=== PATIENT | female | born 1995 | race African-American/Black ===

== ENCOUNTER 2018-12-12 20:13 | Emergency (ER) | payer BC ==
[2018-12-12 22:33] LABS: ABSOLUTE EOSINOPHILS # (AUTO) 0.1 10^3/uL (0.0-0.6); ABSOLUTE LYMPHOCYTES (AUTO) 1.7 10^3/uL (0.5-4.7); ABSOLUTE MONOCYTES (AUTO) 0.8 10^3/uL (0.1-1.4); ABSOLUTE NEUT (AUTO) 9.1 10^3/uL (1.7-8.2); BASOPHILS % (AUTO) 0.2 % (0-2); EOSINOPHILS % (AUTO) 0.7 % (0-6); HEMATOCRIT 35.4 % (36.0-47.0); HEMOGLOBIN 12.1 g/dL (12.0-15.5); LYMPHOCYTES % (AUTO) 14.4 % (13-45); MEAN CORPUSCULAR HGB CONC 34.3 g/dL (32.0-36.0); MEAN CORPUSCULAR VOLUME 85 fl (80-97); MONOCYTES % (AUTO) 7.1 % (3-13); PLATELET COUNT 222 10^3/uL (150-450); RED BLOOD COUNT 4.19 10^6/uL (3.72-5.28); RED CELL DISTRIBUTION WIDTH 14.8 % (11.5-14.0); SEGMENTED NEUTROPHILS % (AUTO) 77.6 % (42-78); TOTAL CELLS COUNTED % (AUTO) 100 %; WHITE BLOOD COUNT 11.7 10^3/uL (4.0-10.5)
[2018-12-12 22:38] LABS: APPEARANCE,URINE SLIGHTLY-CLOUDY; BILIRUBIN,URINE NEGATIVE (NEGATIVE); COLOR,URINE YELLOW; GLUCOSE, URINE NEGATIVE (NEGATIVE); KETONES,URINE NEGATIVE (NEGATIVE); LEUKOCYTE ESTERASE,URINE NEGATIVE (NEGATIVE); NITRITE,URINE NEGATIVE (NEGATIVE); PROTEIN,URINE NEGATIVE (NEGATIVE); URINE SPECIFIC GRAVITY 1.015; UROBILINOGEN,URINE NEGATIVE mg/dL (<2.0)
--- NOTE | 2018-12-12 23:30 | ER Document Report ---
ED Medical Screen (RME) - General Chief Complaint: Vag Bleeding, +preg <12wks Stated Complaint: VAGINAL BLEEDING Time Seen by Provider: 12/12/18 23:26 Notes: 23-year-old G1, P0 10 week 6-day female presents to the emergency department for vaginal bleeding during . She said that she had an episode where she bled like a. And she passed a blood clot approximately the size of a quarter at 7:40 PM tonight. She complains of mild cramping in her left lower quadrant. She denies nausea or vomiting. EXAM: CARDIAC: RRR, S1S2 heard, no murmurs; RESP: BBS lungs CTAB I have greeted and performed a rapid initial assessment of this patient. A comprehensive ED assessment and evaluation of the patient, analysis of test results and completion of medical decision making process will be conducted by an additional ED providers. TRAVEL OUTSIDE OF THE [place] IN LAST 30 DAYS: No - Related Data Allergies/Adverse Reactions: No Known Allergies Allergy (Verified 05/24/15 15:48) Past Medical History - Social History Chew tobacco use (# tins/day): No Frequency of alcohol use: None Drug Abuse: None Renal/ Medical History: Denies: Hx Peritoneal Dialysis - Immunizations Immunizations up to date: Yes Physical Exam - Vital signs Vitals: Temp Pulse Resp BP Pulse Ox 98.2 F 77 18 129/62 H 100 12/12/18 21:16 12/12/18 21:16 12/12/18 21:16 12/12/18 21:16 12/12/18 21:16 Course - Vital Signs Vital signs: Temp Pulse Resp BP Pulse Ox 98.2 F 77 18 129/62 H 100 12/12/18 21:16 12/12/18 21:16 12/12/18 21:16 12/12/18 21:16 12/12/18 21:16 - Laboratory Result Diagrams: 12/12/18 22:13 Laboratory results interpreted by me: 12/12/18 12/12/18 20:20 22:13 WBC 11.7 H Hct 35.4 L RDW 14.8 H Absolute Neutrophils 9.1 H Urine Blood LARGE H
--- NOTE | 2018-12-13 00:57 | RADIOLOGY REPORT (SQ) ---
EXAM DESCRIPTION: US LESS THAN 14 WEEKS COMPLETED DATE/TME: 12/12/2018 23:27 CLINICAL HISTORY: 23 years, Female, Vaginal bleeding COMPARISON: None. TECHNIQUE: Transverse and longitudinal transabdominal sonographic images of the pelvis in a first trimester patient LIMITATIONS: None. FINDINGS: The uterus measures 11.1 x 8.0 x 8.1 cm. There is an intrauterine gestational sac with pole. Current ultrasound age is 11 weeks 0 days. heart tones obtained at 160 bpm. The maternal right ovary measures 4 x 3 x 2 cm, the left 3 x 3 x 2 cm. No adnexal solid mass. There is a 1.4 x 1.8 cm cyst of the right ovary which likely reflects a corpus luteal cyst. Arterial and venous flow to both ovaries. No free fluid IMPRESSION: Single live intrauterine gestation with current ultrasound age 11 weeks 0 days. Probable corpus luteal cyst of the right ovary. Nonemergent follow-up recommended copyright 2010 [employer]- All Rights Reserved
--- NOTE | 2018-12-13 02:54 | ER Document Report ---
ED General - General Chief Complaint: Vag Bleeding, +preg <12wks Stated Complaint: VAGINAL BLEEDING Time Seen by Provider: 12/12/18 23:26 Notes: 23-year-old G1, P0 10 week 6-day female presents to the emergency department for vaginal bleeding during . She said that she had an episode where she bled like her period. She passed a blood clot approximately the size of a quarter at 7:40 PM tonight. She complains of mild cramping in her left lower quadrant. She denies nausea or vomiting. Denies fevers or chills, denies trauma. TRAVEL OUTSIDE OF THE [place] IN LAST 30 DAYS: No - Related Data Allergies/Adverse Reactions: No Known Allergies Allergy (Verified 05/24/15 15:48) Past Medical History - Social History Smoking Status: Never Smoker Chew tobacco use (# tins/day): No Frequency of alcohol use: None Drug Abuse: None Family History: Reviewed & Not Pertinent Patient has suicidal ideation: No Patient has homicidal ideation: No Renal/ Medical History: Denies: Hx Peritoneal Dialysis - Immunizations Immunizations up to date: Yes Review of Systems - Review of Systems Constitutional: See HPI EENT: No symptoms reported Cardiovascular: See HPI Respiratory: See HPI Gastrointestinal: See HPI Genitourinary: See HPI Female Genitourinary: See HPI Musculoskeletal: No symptoms reported Skin: No symptoms reported Hematologic/Lymphatic: No symptoms reported Neurological/Psychological: No symptoms reported Physical Exam - Vital signs Vitals: Temp Pulse Resp BP Pulse Ox 98.2 F 77 18 129/62 H 100 12/12/18 21:16 12/12/18 21:16 12/12/18 21:16 12/12/18 21:16 12/12/18 21:16 - Notes Notes: PHYSICAL EXAMINATION: Reviewed vital signs and charting by RN GENERAL: Well-appearing, well-nourished and in no acute distress. HEAD: Atraumatic, normocephalic. No scalp deformity, depression, or crepitance. LUNGS: Breath sounds present, equal, and clear to auscultation bilaterally. No wheezes, rales, or rhonchi. HEART: Regular rate and rhythm without murmurs, rubs, or gallops. 2+ peripheral pulses. Normal capillary refill. ABDOMEN: Soft, mild left lower quadrant tenderness to palpation, nondistended. Normoactive bowel sounds. No guarding, no rebound. No masses appreciated. BACK: Normal contour, no midline tenderness. Rectal exam deferred. PELVC: Deferred. EXTREMITIES: Normal range of motion, no pitting or edema. No cyanosis. PSYCH: Normal mood, normal affect. No suicidal thoughts/ideations. No homocidal thoughts/ideations. No hallucinations. SKIN: Warm, dry, normal turgor, no rashes or lesions noted. Course - Re-evaluation Re-evalutation: 12/13/18 02:56 Well-appearing. Patient states she is still bleeding but is not heavy. She has not soaked through one pad. Ultrasound shows a live intrauterine . She is being followed by [facility]. I have instructed her to follow-up with them in the morning strict return precautions given. Stable for discharge. - Vital Signs Vital signs: Temp Pulse Resp BP Pulse Ox 98.2 F 77 18 129/62 H 100 12/12/18 21:16 12/12/18 21:16 12/12/18 21:16 12/12/18 21:16 12/12/18 21:16 - Laboratory Result Diagrams: 12/12/18 22:13 Laboratory results interpreted by me: 12/12/18 12/12/18 12/12/18 20:20 22:13 22:13 WBC 11.7 H Hct 35.4 L RDW 14.8 H Absolute Neutrophils 9.1 H Beta HCG, Quant 051878.00 H Urine Blood LARGE H Discharge - Discharge Clinical Impression: Vaginal bleeding during Condition: Good Disposition: HOME, SELF-CARE Additional Instructions: Your ultrasound today shows a living intrauterine . Please follow closely with your primary care PT SITTER. Please return if you develop severe abdominal pain, bleeding that goes through more than 2 pads for more than 2 hours, pass out, or have any other symptoms that are concerning to you. Please follow-up closely with your OBGYN regarding todays visit.
[2018-12-13 02:55] VITALS: BP 113/71
== END 2018-12-13 03:11 | disposition home or self-care (01) ==
LOC: ER 20:13
DX: O20.9 Hemorrhage in early pregnancy, unspecified (principal); O26.891 Other specified pregnancy related conditions, first trimester; R10.32 Left lower quadrant pain; R10.814 Left lower quadrant abdominal tenderness; Z3A.10 10 weeks gestation of pregnancy
CPT/HCPCS: 36415; 76801; 81001; 84702; 85025; 86900; 86901; 99284

== ENCOUNTER 2019-07-01 07:38 | Inpatient (IN) | payer BC, MEDICAID ==
[2019-07-01 08:13] LABS: APPEARANCE,URINE SLIGHTLY-CLOUDY; BILIRUBIN,URINE NEGATIVE (NEGATIVE); COLOR,URINE YELLOW; GLUCOSE, URINE NEGATIVE (NEGATIVE); KETONES,URINE NEGATIVE (NEGATIVE); LEUKOCYTE ESTERASE,URINE NEGATIVE (NEGATIVE); NITRITE,URINE NEGATIVE (NEGATIVE); PROTEIN,URINE 30 mg/dL (NEGATIVE); URINE SPECIFIC GRAVITY 1.011; UROBILINOGEN,URINE NEGATIVE mg/dL (<2.0)
[2019-07-01 08:35] LABS: URINE AMPHETAMINES SCREEN NEGATIVE; URINE BARBITURATES SCREEN NEGATIVE; URINE BENZODIAZEPINES SCREEN NEGATIVE; URINE COCAINE SCREEN NEGATIVE; URINE MARIJUANA (THC) SCREEN NEGATIVE; URINE METHADONE SCREEN NEGATIVE; URINE PHENCYCLIDINE SCREEN NEGATIVE
--- NOTE | 2019-07-01 10:17 | Admission Physical ---
Datetime Report Generated by CPN: 07/01/2019 10:17 CURRENT ADMISSION Chief Complaint: Uterine Contractions Indication for Induction: Not Applicable Admit Impression : Active Labor Admit Plan: Admit to Unit; Initiate Labor Protocol Admit Plan- Other: GBS neg + SC trait, FOB not tested ALLERGIES Medication Allergies: No Medication Allergies: No Known Allergies (05/24/2015) Latex: No Latex Allergies OBSTETRICAL HISTORY EDC: 07/04/2019 00:00 : 1 Para: 0 Gestational Diabetes: No Rh Sensitization: No Incompetent Cervix: No PEGGY: No Infertility: No ART Treatment: No Uterine Anomaly: No IUGR: No Hx Previous C/S: No Macrosomia: No Hx Loss/Stillborn: No PIH: No Hx : No Placenta Previa/Abruption: No Depression/PP Depression: No PTL/PROM: No Post Hemorrhage: No Current Procedures: Ultrasound; NST Obstetrical History Comments: G1- curernt SEE RECORDS Alcohol: No Marijuana : No Cocaine: No Other Illicit Drugs: No Cigarettes: Never Smoker. 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: No Heart Disease: No Hosp/Surgery: No Autoimmune Disorder: No Anesthetic Complications: No Kidney Disease: No Abnormal Pap Smear: No Neuro/Epilepsy: No Psychiatric Disorders: No Other Medical Diseases: No Hepatitis/Liver Disease: No Significant Family History: No Varicosities/Phlebitis: No Trauma/Violence : No Thyroid Dysfunction: No INFECTIOUS HISTORY Gonorrhea: No Genital Herpes: No Chlamydia: Yes Tuberculosis: No Syphilis: No Hepatitis: No HIV/AIDS Exposure: No Rash or Viral Illness: No HPV: No Infectious History Comments: chlamydia 2014, BV during , hx trich (negative YARELI 12/26/2018) PHYSICAL EXAM General: Normal HEENT: Deferred Neurologic: Normal Thyroid: Deferred Heart: Normal Lungs: Normal Breast: Deferred Back: Deferred Abdomen: Normal Genitourinary Exam: Normal Extremities: Normal DTRs: Deferred Pelvic Type: Adequate Vital Signs: Reviewed VAGINAL EXAM Dilatation: 4 Effacement: 100 Station: -1 MEMBRANES Membranes: Intact FETUS A EGA: 39.4 Monitoring: External US FHR- Baseline: 155 Variability: Moderate 6-25bpm Accelerations: 15X15 Decelerations: None FHR Category: Category I Presentation: Vertex Admit Comment: plans unmedicated no significant med hx +SC trait PLANS FOR LABOR AND DELIVERY Labor and Delivery: None Pain Management: Natural Feeding Preference: Breast Benefit of Breast Feed Discussed: Yes Circumcision: Yes INFORMED CONSENT Assignment: Haritha Hopper MD Signature: with User ID: [email or web address] : with User ID: [email or web address]
[2019-07-01] MEDS ORDERED: RINGERS SOLUTION,LACTATED 1,000 ML IV PRN (11:05)
[2019-07-01] MEDS ORDERED: RINGERS SOLUTION,LACTATED 300 ML IV ONE (11:08)
[2019-07-01 13:01] LABS: ABSOLUTE MONOCYTES (AUTO) 0.6 10^3/uL (0.1-1.4); ABSOLUTE NEUT (AUTO) 15.1 10^3/uL (1.7-8.2); BASOPHILS % (AUTO) 0.1 % (0-2); HEMATOCRIT 35.2 % (36.0-47.0); HEMOGLOBIN 11.6 g/dL (12.0-15.5); LYMPHOCYTES % (AUTO) 5.8 % (13-45); MEAN CORPUSCULAR VOLUME 76 fl (80-97); MONOCYTES % (AUTO) 3.8 % (3-13); PLATELET COUNT 284 10^3/uL (150-450); RED BLOOD COUNT 4.64 10^6/uL (3.72-5.28); SEGMENTED NEUTROPHILS % (AUTO) 90.3 % (42-78); TOTAL CELLS COUNTED % (AUTO) 100 %; WHITE BLOOD COUNT 16.8 10^3/uL (4.0-10.5)
[2019-07-01] MEDS ORDERED: MISOPROSTOL 0.2 MG TABLET ONE (14:54)
[2019-07-01] MEDS ORDERED: OXYTOCIN/NORMAL SALINE 20 UNIT/1,000 ML RTUINJ ONE (14:54)
[2019-07-01] MEDS ORDERED: OXYTOCIN 10 UNIT/ML VIAL ONE (14:54)
[2019-07-01] MEDS ORDERED: LIDOCAINE 1% INJ-PF (10 MG/ML) 30 ML SDV ONE (14:54)
[2019-07-01] MEDS ORDERED: NALBUPHINE HCL INJ 10 MG/1 ML AMPULE IV ONE (15:32)
[2019-07-01] MEDS ORDERED: NALBUPHINE HCL INJ 10 MG/1 ML AMPULE ONE (15:32)
[2019-07-01] MEDS ORDERED: PROMETHAZINE HCL INJ 25 MG/1 ML VIAL IV ONE (15:32)
[2019-07-01] MEDS ORDERED: PROMETHAZINE HCL INJ 25 MG/1 ML VIAL ONE (15:32)
[2019-07-01] MEDS ORDERED: EPHEDRINE SULFATE INJ 50 MG/1 ML AMPULE ONE (16:37)
[2019-07-01] MEDS ORDERED: FENTANYL CITRATE INJ/PF 100 MCG/2 ML AMPUL ONE (16:37)
[2019-07-01] MEDS ORDERED: PHENYLEPHRINE HCL INJ/PF 10 MG/1 ML SDV ONE (16:37)
[2019-07-01] MEDS ORDERED: BUPIVACAINE HCL 0.25 % INJ/PF (2.5 MG/1 ML) 30 ML VIAL ONE (16:38)
[2019-07-01] MEDS ORDERED: FENTANYL/BUPIVACAINE/NS/PF 300 MCG/150 ML RTUINJ EPI ONE (16:38)
--- NOTE | 2019-07-01 18:50 | Admission Physical ---
Datetime Report Generated by CPN: 07/01/2019 18:49 CURRENT ADMISSION Chief Complaint: Uterine Contractions Indication for Induction: Not Applicable Admit Impression : Term, Intrauterine ; Active Labor Admit Plan: Admit to Unit; Initiate Labor Protocol Admit Plan- Other: GBS neg + SC trait, FOB not tested ALLERGIES Medication Allergies: No Medication Allergies: No Known Allergies (05/24/2015) Latex: No Latex Allergies OBSTETRICAL HISTORY EDC: 07/04/2019 00:00 : 1 Para: 0 Gestational Diabetes: No Rh Sensitization: No Incompetent Cervix: No PEGGY: No Infertility: No ART Treatment: No Uterine Anomaly: No IUGR: No Hx Previous C/S: No Macrosomia: No Hx Loss/Stillborn: No PIH: No Hx : No Placenta Previa/Abruption: No Depression/PP Depression: No PTL/PROM: No Post Hemorrhage: No Current Procedures: Ultrasound; NST Obstetrical History Comments: G1- current SEE RECORDS Alcohol: No Marijuana : No Cocaine: No Other Illicit Drugs: No Cigarettes: Never Smoker. 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 Heart Disease: No Hosp/Surgery: No Autoimmune Disorder: No Anesthetic Complications: No Kidney Disease: No Abnormal Pap Smear: No Neuro/Epilepsy: No Psychiatric Disorders: No Other Medical Diseases: No Hepatitis/Liver Disease: No Significant Family History: No Varicosities/Phlebitis: No Trauma/Violence : No Thyroid Dysfunction: No INFECTIOUS HISTORY Gonorrhea: No Genital Herpes: No Chlamydia: Yes Tuberculosis: No Syphilis: No Hepatitis: No HIV/AIDS Exposure: No Rash or Viral Illness: No HPV: No Infectious History Comments: chlamydia 2014, BV during , hx trich (negative YARELI 12/26/2018) PHYSICAL EXAM General: Normal HEENT: Normal Neurologic: Normal Thyroid: Normal Heart: Normal Lungs: Normal Breast: Normal Back: Normal Abdomen: Normal Genitourinary Exam: Normal Extremities: Normal DTRs: Normal Pelvic Type: Adequate Vital Signs: Reviewed VAGINAL EXAM Dilatation: 5 Effacement: 100 Station: -2 Contraction Comments: regularly Q 3-4 minutes and getting stronger MEMBRANES Membranes: Ruptured Amniotic Fluid Color: Clear FETUS A EGA: 39.4 Monitoring: External US FHR- Baseline: 135 Variability: Moderate 6-25bpm Accelerations: 15X15 Decelerations: None FHR Category: Category I Presentation: Vertex Admit Comment: G1 at 39/4 wks EGA in active labor Patient with painful ctx, increasing pain and frequency -Admit to LDR -NPO and IVFs -CEFM and [place] -GBS negative -Montior for progression of labor. Intact membranes. WIll AROm when indicated -Epidural for pain management as needed. -Anticipate PLANS FOR LABOR AND DELIVERY Labor and Delivery: None Pain Management: Natural Feeding Preference: Breast Benefit of Breast Feed Discussed: Yes Circumcision: Yes INFORMED CONSENT Informed Consent Obtained: Vaginal Delivery; Section Delivery; Vacuum/Forceps Assist; Risks, Benefits and Alternatives Discussed Assignment: Haritha Hopper MD Signature: with User ID: Lauren : with User ID: Lauren
[2019-07-01] MEDS ORDERED: PROMETHAZINE HCL 25 MG SUPP.RECT PR PRN (21:37)
[2019-07-01] MEDS ORDERED: NA PHOS,M-B/NA PHOS,DI-BA (ADULT) 133 ML ENEMA PR PRN (21:37)
[2019-07-01] MEDS ORDERED: DIPHENHYDRAMINE HCL 25 MG CAPSULE PO PRN (21:37)
[2019-07-01] MEDS ORDERED: MAGNESIUM HYDROXIDE SUSP 30 ML UDCUP PO PRN (21:37)
[2019-07-01] MEDS ORDERED: OXYTOCIN/NORMAL SALINE 20 UNIT/1,000 ML RTUINJ IV PRN (21:37)
[2019-07-01] MEDS ORDERED: GLYCERIN/WITCH HAZEL LEAF 1 EACH MED..WIPE TP PRN (21:37)
[2019-07-01] MEDS ORDERED: PROMETHAZINE HCL 25 MG TABLET PO PRN (21:37)
[2019-07-01] MEDS ORDERED: DIBUCAINE 1% OINTMENT 56 GM TP PRN (21:37)
[2019-07-01] MEDS ORDERED: PSEUDOEPHEDRINE HCL 30 MG TABLET PO PRN (21:37)
[2019-07-01] MEDS ORDERED: DIPH/PERTUSS(ACELL)/TETANUS VAC/PF 0.5 ML SYR (>=10YO) IM PRN (21:37)
[2019-07-01] MEDS ORDERED: ACETAMINOPHEN 650 MG SUPP.RECT PR PRN (21:37)
[2019-07-01] MEDS ORDERED: BENZOCAINE/MENTHOL AEROSOL SPRAY 56 ML TOP PRN (21:37)
[2019-07-01] MEDS ORDERED: ZOLPIDEM TARTRATE 5 MG TABLET PO PRN (21:37)
[2019-07-01] MEDS ORDERED: PROMETHAZINE HCL INJ 25 MG/1 ML VIAL IV PRN (21:37)
[2019-07-01] MEDS ORDERED: MEASLES,MUMPS&RUBELLA VACC/PF 0.5 ML VIAL SUBCUT PRN (21:37)
[2019-07-01] MEDS ORDERED: ACETAMINOPHEN WITH CODEINE #3 TABLET PO PRN ×2 (21:37)
[2019-07-01] MEDS ORDERED: CEFAZOLIN INJ 1 GM VIAL ONE (22:06)
[2019-07-01] MEDS: FAMOTIDINE 20 MG TABLET PO SCH (22:08)
--- NOTE | 2019-07-01 22:45 | Delivery Summary ---
Del Sum A-C Datetime Report Generated by CPN: 07/01/2019 22:44 DELIVERY PERSONNEL DELIVERY PERSONNEL: [id number] Delivery Doctor:: Haritha Hopper MD Labor and Delivery Nurse:: Bobbi Duran RNscreen door maker Nurse:: JENSEN Ramirez Nursery Nurse:: Cornel Crane Infantry Indirect Fire Crewmember/ELECTRICAL AUTOMATION ENGINEER: Mary Jane Villalpando, ST MATERNAL INFORMATION Delivery Anesthesia: Epidural Medications After Delivery: Pitocin Drip 20 Units/1000ml NSS Delivery QBL: 100 Maternal Complications: None Provider Comments: Called to patients room with complete dilation, +2 station and urge to push. Patient having deceleration of heart rate with contractions-late. Repostioned, IVF bolus running and O2 via facemask. Pushed with patient. DIscussed use of vacuum to assist with delivery as decelerations continued off and on between positioning. Risk and benefits reviewed. Kiwi vacuum placed approximately 2 cm anterior to posterior fontanell over the sagital suture. Traction applied with maternal pushing for two pushes . Descent of the head noted. No pop-offs. After delivery of the head, shoulder dystocia encountered. Mc Paredes was initiated. After this, attempt was made to turn the posterior shoulder and or deliver the posterior arm. This was unsuccessful and suprapubic pressure requested. RN applied suprapubic pressure and anterior should delivered. After this the shoulders and rest of the body easily delivered. was suctioned orally and nasally. Cord doubly clamped and cut. handed off to nursery nurse. Terminal meconium noted. Male infant and he was crying with stimulation. Third degree perineal laceratioin, repaired in a layer closure. Both mother and infant stable following delivery LABOR SUMMARY EDC: 07/04/2019 00:00 No. Babies in Womb: 1 Attempted: No Labor Anesthesia: None LABOR INFORMATION Reason for Induction: Not Applicable Onset of Labor: 07/01/2019 09:47 Complete Dilatation: 07/01/2019 20:46 Oxytocin: N/A Group B Beta Strep: negative Antibiotics # of Doses: 0 Antibiotics Time of Last Dose: N/A Name of Antibiotic Given: N/A Steroids Given: None Reason Steroids Not Administered: Not Applicable MEMBRANES Membranes Rupture Method: Artificial Rupture of Membranes: 07/01/2019 14:34 Length of Rupture (hr): 6.58 Amniotic Fluid Color: Bloody Amniotic Fluid Amount: Small Amniotic Fluid Odor: Normal STAGES OF LABOR Stage 1 hr: 10 Stage 1 min: 59 Stage 2 hr: 0 Stage 2 min: 23 Stage 3 hr: 0 Stage 3 min: 3 Total Time in Labor hr: 11 Total Time in Labor min: 25 VAGINAL DELIVERY Episiotomy: None Laceration #1: Perineal Laceration Extension #1: Third Degree, IIIa (Less than 50 percent ext anal sphincter thickness torn) Laceration Repair: Yes Laceration Repair Note: Layered closure Sponge Count Correct: Yes Sharps Count Correct: Yes CSECTION DELIVERY Primary Indication: N/A Secondary Indication: N/A CSection Incidence: N/A Labor: N/A Elective: N/A CSection Incision: N/A BABY A INFORMATION Delivery Date/Time: 07/01/2019 21:09 Method of Delivery: Vaginal Born in Route : No : N/A Forceps: N/A Vacuum Extraction: Successful Shoulder Dystocia : Yes ASSISTED DELIVERY BABY A Indication for Assisted Delivery: heart tones Catheter Prior to Procedure: Yes Station Vacuum/Forcep Apply: +2 Position Vacuum/Forcep Apply: Right Occipital Anterior Vacuum Number of Pulls: 3 Vacuum Number of PopOffs: 0 Vacuum Maximum Pressure Obtained: 500 Reduce Pressure btwn Ctx: Yes Vacuum Utility Maintenance Worker: kiwi Total Time Vacuum Applied: 3 SHOULDER DYSTOCIA BABY A Delivery of Head: 07/01/2019 21:07 Time Head to Delivery : 2.0 1st Intervention to Resolve: McRobert's Maneuver 2nd Intervention to Resolve: Suprapubic Pressure Verify NO Fundal Pressure: No Fundal Pressure Applied PRESENTATION/POSITION BABY A Presentation: Cephalic Cephalic Presentation: Vertex Vertex Position: Right Occipital Anterior Breech Presentation: N/A PLACENTA INFORMATION BABY A Placenta Delivery Time : 07/01/2019 21:12 Placenta Method of Delivery: Spontaneous Placenta Status: Delivered SCORES BABY A Heart Rate 1 min: >100 bpm Resp Effort 1 min: Slow, Irregular Reflex Irritability 1 min: Cough or Sneeze or Pulls Away Muscle Tone 1 min: Flaccid Color 1 min: Body [place], Extremities Blue Resuscitation Effort 1 min: Tactile Stimulation SCORE 1 MIN: 6 Heart Rate 5 min: >100 bpm Resp Effort 5 min: Slow, Irregular Reflex Irritability 5 min: Cough or Sneeze or Pulls Away Muscle Tone 5 min: Some Flexion of Extremities Color 5 min: Completely [place] SCORE 5 MIN: 8 INFANT INFORMATION BABY A Gestational Age at Delivery: 39.4 Gestational Status: Full Term- 39- 40.6 Weeks Outcome : Liveborn Infant Condition : Stable Infant Sex: Male IDENTIFICATION BABY A Verification Date/Time: 07/01/2019 21:27 ID Band Number: [id number] Mother's Name Verified: Yes RN Verifying Infant: D Bellavance RN/S Green ST WEIGHT/LENGTH BABY A Infant Birthweight (gm): 3244 Infant Weight (lb): 7 Weight (oz): 2 Infant Length (in): 20.50 Infant Length (cm): 52.07 CORD INFORMATION BABY A No. Cord Vessels: 3 Nuchal Cord : N/A Cord Blood Taken: Yes-For Storage (Mom's Blood type +) Infant Suction: Mouth; Nose ASSESSMENT BABY A Skin to Skin: Yes BABY B INFORMATION : N/A SIGNATURES Signature: with User ID: Lauren : with User ID: Lauren : I was personally available for consultation and serving as supervising physician for the MLP.
[2019-07-01] MEDS ORDERED: IBUPROFEN 800 MG TABLET ONE (22:57)
[2019-07-01] MEDS: IBUPROFEN 800 MG TABLET PO SCH (23:59)
[2019-07-02] MEDS ORDERED: CEFAZOLIN 2 GM/D5W RTU 2 GM/50 ML RTUPB IV SCH
[2019-07-02] MEDS: IBUPROFEN 800 MG TABLET PO SCH ×3 (05:12→21:23)
[2019-07-02 07:09] LABS: HEMATOCRIT 28.4 % (36.0-47.0); HEMOGLOBIN 9.6 g/dL (12.0-15.5); MEAN CORPUSCULAR HEMOGLOBIN 25.4 pg (27.0-33.4); MEAN CORPUSCULAR HGB CONC 33.7 g/dL (32.0-36.0); MEAN CORPUSCULAR VOLUME 75 fl (80-97); PLATELET COUNT 243 10^3/uL (150-450); RED BLOOD COUNT 3.77 10^6/uL (3.72-5.28); WHITE BLOOD COUNT 19.1 10^3/uL (4.0-10.5)
[2019-07-02] MEDS: SENNOSIDES/DOCUSATE 8.6-50 MG 1 EACH TABLET PO SCH (09:26)
[2019-07-02] MEDS: PRENATAL VITAMIN W DHA CAPSULE PO SCH (09:26)
[2019-07-02] MEDS: DOCUSATE SODIUM 100 MG CAPSULE PO SCH ×2 (09:26→17:49)
[2019-07-02] MEDS: FAMOTIDINE 20 MG TABLET PO SCH ×2 (09:26→21:23)
[2019-07-02] MEDS: FERROUS SULFATE 325 MG TABLET PO SCH ×2 (09:26→17:49)
--- NOTE | 2019-07-02 10:59 | PDOC PROGRESS REPORT ---
Subjective-OB Progress Note for:: 07/02/19 Subjective: 24yo s/p vacuum assisted vaginal delivery ppd1. Pt. ambulating and without difficulty, reports pain is well tolerated with medication. No concerns. Baby in room. Physical Exam (OB) Vital Signs: Temp Pulse Resp BP Pulse Ox 97.5 F 79 14 125/72 100 07/02/19 07:28 07/02/19 07:28 07/02/19 07:28 07/02/19 07:28 07/02/19 07:28 Intake & Output 07/01/19 07/02/19 07/03/19 06:59 06:59 06:59 Weight 92.9 kg - General General Appearance: Appears well In distress: None - PIH/Pre-Eclampsia DTR's: 2 + Clonus: Negative Headache: Absent Epigastric Pain: No Visual Changes: No - Episiotomy/Laceration Site Condition: Well Approximated - Lochia Lochia Amount: Scant < 10 ml Lochia Color: Rubra/Red - Abdomen Description: Soft Hernia Present: No Fundal Description: Firm, Midline Fundal Height: u/u - u/2 - Respiratory Respiratory Status: No respiratory distress - Extremities Upper extremity: Normal inspection Lower extremities: Normal inspection - Neurological Cognition: Normal Orientation: AAOx4 - Psychological Associated symptoms: Normal affect, Normal mood Objective-Diagnostic Laboratory: 07/02/19 06:48 07/01/19 07/01/19 07/02/19 12:45 12:45 06:48 WBC 16.8 H 19.1 H RBC 4.64 3.77 Hgb 11.6 L 9.6 L Hct 35.2 L 28.4 L MCV 76 L 75 L MCH 25.0 L 25.4 L MCHC 33.0 33.7 RDW 18.0 H 18.0 H Plt Count 284 243 Seg Neutrophils % 90.3 H Blood Type A POSITIVE Antibody Screen NEGATIVE Assessment and Plan(PN) - Assessment and Plan (1) Acute blood loss anemia Is this a current diagnosis for this admission?: Yes Plan: increase dietary iron as well as FeSO4 BID. (2) Obstetric vaginal laceration with type 3a third degree perineal laceration Is this a current diagnosis for this admission?: Yes Plan: reports no pain today, continue to monitor for s/s of infection. Will need f/u at office a week pp (3) Shoulder dystocia, delivered Is this a current diagnosis for this admission?: Yes Plan: delivered, baby doing ok in room with mom. (4) Vacuum-assisted vaginal delivery Is this a current diagnosis for this admission?: Yes Plan: delivered - Time Spent with Patient Time with patient: Less than 15 minutes Medications reviewed and adjusted accordingly: Yes - Disposition Anticipated Discharge: Home Within: within 24 hours
[2019-07-03] MEDS: IBUPROFEN 800 MG TABLET PO SCH ×2 (05:38→13:53)
[2019-07-03 08:06] VITALS: BP 125/71
--- NOTE | 2019-07-03 09:26 | PDOC PROGRESS REPORT ---
Subjective-OB Progress Note for:: 07/03/19 Subjective: Ready to go home. Physical Exam (OB) Vital Signs: Temp Pulse Resp BP Pulse Ox 97.7 F 66 18 125/71 100 07/03/19 07:43 07/03/19 07:43 07/03/19 07:43 07/03/19 07:43 07/03/19 07:43 Intake & Output 07/02/19 07/03/19 07/04/19 06:59 06:59 06:59 Weight 92.9 kg - PIH/Pre-Eclampsia DTR's: 2 + Clonus: Negative Headache: Absent Epigastric Pain: No Visual Changes: No - Lochia Lochia Amount: Small 10-25 ml Lochia Color: Rubra/Red - Abdomen Description: Soft, Round Hernia Present: No Bowel Sounds: Normoactive Flatus Presence: Present Stool: No Fundal Description: Firm, Midline Fundal Height: u/u - u/2 Objective-Diagnostic Laboratory: 07/02/19 06:48 Assessment and Plan(PN) - Time Spent with Patient Medications reviewed and adjusted accordingly: Yes - Disposition Anticipated Discharge: Home
--- NOTE | 2019-07-03 09:33 | PDOC DISCHARGE SUMMARY ---
Impression - Admit/DC Date/PCP Admission Date/Primary Care Provider: 07/01/19 10:03 CAMERON MCGINNIS MD Discharge Date: 07/03/19 - Discharge Diagnosis (1) Acute blood loss anemia Is this a current diagnosis for this admission?: Yes (2) Obstetric vaginal laceration with type 3a third degree perineal laceration Is this a current diagnosis for this admission?: Yes (3) Obstetric vaginal laceration with third degree perineal laceration Is this a current diagnosis for this admission?: Yes (4) History of third degree perineal laceration Is this a current diagnosis for this admission?: Yes (5) Shoulder dystocia, delivered Is this a current diagnosis for this admission?: Yes (6) Vacuum-assisted vaginal delivery Is this a current diagnosis for this admission?: Yes - Additional Information Resuscitation Status: Full Code Discharge Diet: Regular Discharge Activity: Activity As Tolerated, Balance Activity w/Rest, Pelvic Rest, Slowly Increase Activity, No tub bath Referrals: CAMERON MCGINNIS MD [Primary Care Provider] - Prescriptions: Ibuprofen [Motrin 800 mg Tablet] 800 mg PO Q8HP PRN #30 tablet PRN Reason: For Pain Scale 1-3 Docusate Sodium [Colace 100 mg Capsule] 100 mg PO BID #60 capsule Ferrous Sulfate [Feosol 325 mg Tablet] 325 mg PO BID #60 tablet Home Medications: Vits96/Iron Fum/Folic [ Tablet] 1 tab PO DAILY 07/01/19 Docusate Sodium [Colace 100 mg Capsule] 100 mg PO BID #60 capsule 07/02/19 Ferrous Sulfate [Feosol 325 mg Tablet] 325 mg PO BID #60 tablet 07/02/19 Ibuprofen [Motrin 800 mg Tablet] 800 mg PO Q8HP PRN #30 tablet 07/02/19 HPI Gestational Age: 39.4 wks Reason(s) for Admission: Onset of Labor Procedures: Ultrasound Intrapartum Procedure(s): Vacuum Extraction Complication(s): Laceration-Perineal Laceration-Degree: 3rd Results Laboratory Results: WBC 19.1 10^3/uL (4.0-10.5) H 07/02/19 06:48 RBC 3.77 10^6/uL (3.72-5.28) 07/02/19 06:48 Hgb 9.6 g/dL (12.0-15.5) L 07/02/19 06:48 Hct 28.4 % (36.0-47.0) L 07/02/19 06:48 MCV 75 fl (80-97) L 07/02/19 06:48 MCH 25.4 pg (27.0-33.4) L 07/02/19 06:48 MCHC 33.7 g/dL (32.0-36.0) 07/02/19 06:48 RDW 18.0 % (11.5-14.0) H 07/02/19 06:48 Plt Count 243 10^3/uL (150-450) 07/02/19 06:48 Lymph % (Auto) 5.8 % (13-45) L 07/01/19 12:45 [place] % (Auto) 3.8 % (3-13) 07/01/19 12:45 Eos % (Auto) 0.0 % (0-6) 07/01/19 12:45 Baso % (Auto) 0.1 % (0-2) 07/01/19 12:45 Absolute Neuts (auto) 15.1 10^3/uL (1.7-8.2) H 07/01/19 12:45 Absolute Lymphs (auto) 1.0 10^3/uL (0.5-4.7) 07/01/19 12:45 Absolute Monos (auto) 0.6 10^3/uL (0.1-1.4) 07/01/19 12:45 Absolute Eos (auto) 0.0 10^3/uL (0.0-0.6) 07/01/19 12:45 Absolute Basos (auto) 0.0 10^3/uL (0.0-0.2) 07/01/19 12:45 Seg Neutrophils % 90.3 % (42-78) H 07/01/19 12:45 Urine Color YELLOW 07/01/19 07:50 Urine Appearance SLIGHTLY-CLOUDY 07/01/19 07:50 Urine pH 7.0 (5.0-9.0) 07/01/19 07:50 Ur Specific [place] 1.011 07/01/19 07:50 Urine Protein 30 mg/dL (NEGATIVE) H 07/01/19 07:50 Urine Glucose (UA) NEGATIVE mg/dL (NEGATIVE) 07/01/19 07:50 Urine Ketones NEGATIVE mg/dL (NEGATIVE) 07/01/19 07:50 Urine Blood NEGATIVE (NEGATIVE) 07/01/19 07:50 Urine Nitrite NEGATIVE (NEGATIVE) 07/01/19 07:50 Urine Bilirubin NEGATIVE (NEGATIVE) 07/01/19 07:50 Urine Urobilinogen NEGATIVE mg/dL (<2.0) 07/01/19 07:50 Ur Leukocyte Esterase NEGATIVE (NEGATIVE) 07/01/19 07:50 Urine Ascorbic Acid NEGATIVE (NEGATIVE) 07/01/19 07:50 Urine Opiates Screen NEGATIVE 07/01/19 07:50 Urine Methadone Screen NEGATIVE 07/01/19 07:50 Ur Barbiturates Screen NEGATIVE 07/01/19 07:50 Ur Phencyclidine Scrn NEGATIVE 07/01/19 07:50 Ur Amphetamines Screen NEGATIVE 07/01/19 07:50 U Benzodiazepines Scrn NEGATIVE 07/01/19 07:50 Urine Cocaine Screen NEGATIVE 07/01/19 07:50 U Marijuana (THC) Screen NEGATIVE 07/01/19 07:50 RPR NONREACTIVE (NONREACTIVE) 07/01/19 12:45 Blood Type A POSITIVE 07/01/19 12:45 Antibody Screen NEGATIVE 07/01/19 12:45 Plan Plan of Treatment: Follow up at [facility] in 4 wks or prn. Pelvic rest x 4-6 wks. Time Spent: Less than 30 Minutes
[2019-07-03] MEDS: DOCUSATE SODIUM 100 MG CAPSULE PO SCH (09:48)
[2019-07-03] MEDS: FERROUS SULFATE 325 MG TABLET PO SCH (09:48)
[2019-07-03] MEDS: SENNOSIDES/DOCUSATE 8.6-50 MG 1 EACH TABLET PO SCH (09:48)
[2019-07-03] MEDS: PRENATAL VITAMIN W DHA CAPSULE PO SCH (09:48)
[2019-07-03] MEDS: FAMOTIDINE 20 MG TABLET PO SCH (09:48)
[2019-07-03 10:50] LABS: HEMOGLOBIN 10.5 g/dL (12.0-15.5); MEAN CORPUSCULAR HEMOGLOBIN 25.2 pg (27.0-33.4); MEAN CORPUSCULAR HGB CONC 32.8 g/dL (32.0-36.0); MEAN CORPUSCULAR VOLUME 77 fl (80-97); PLATELET COUNT 250 10^3/uL (150-450); RED BLOOD COUNT 4.17 10^6/uL (3.72-5.28); RED CELL DISTRIBUTION WIDTH 18.2 % (11.5-14.0); WHITE BLOOD COUNT 14.4 10^3/uL (4.0-10.5)
[2019-07-03] MEDS ORDERED: INFLUENZA QUAD (6MOS+) 2019-20 VAC 0.5 ML SYR IM ONE (12:50)
== END 2019-07-03 14:23 | disposition home or self-care (01) | DRG 768 ==
LOC: LC 07:38 → LR 10:03 → 2S 23:29
PROVIDERS: ADMIT Obstetrics & Gynecology; ATTEND Obstetrics & Gynecology
PROC: 10D07Z6 Extraction of Products of Conception, Vacuum, Via Natural or Artificial Opening (ICD-10-PCS; principal; 2019-07-01)
PROC: 0DQR0ZZ Repair Anal Sphincter, Open Approach (ICD-10-PCS; 2019-07-01)
PROC: 3E02340 Introduction of Influenza Vaccine into Muscle, Percutaneous Approach (ICD-10-PCS; 2019-07-03)
DX: O66.0 Obstructed labor due to shoulder dystocia (principal); Z37.0 Single live birth; O70.21 Third degree perineal laceration during delivery, IIIa; D62 Acute posthemorrhagic anemia; O76 Abnormality in fetal heart rate and rhythm complicating labor and delivery; Z3A.39 39 weeks gestation of pregnancy; O77.0 Labor and delivery complicated by meconium in amniotic fluid; Z23 Encounter for immunization; O99.02 Anemia complicating childbirth
CPT/HCPCS: 36415; 80307; 81005; 85025; 85027; 86592; 86850; 86900; 86901; 90686; 94760; J0690; J2300; J2370; J2550; J2590; J3010; J3490